=== PATIENT | male | born 1985 | race Caucasian/White ===

== ENCOUNTER 2024-04-17 15:30 | Inpatient (IN) | payer OTHER ==
[2024-04-17] MEDS: diazePAM 5 MG TABLET PO SCH (15:45)
[2024-04-17 17:18] VITALS: BMI 25.2
[2024-04-17] MEDS ORDERED: LOPERAMIDE HCL 2 MG CAPSULE PO PRN (17:35)
[2024-04-17] MEDS ORDERED: POLYETHYLENE GLYCOL (HEALTHYLAX) 3350 17 GM PACKET PO PRN (17:35)
[2024-04-17] MEDS ORDERED: BENZONATATE 200 MG CAPSULE PO PRN (17:35)
[2024-04-17] MEDS ORDERED: cloNIDine HCL 0.1 MG TABLET PO PRN (17:35)
[2024-04-17] MEDS ORDERED: MAG HYDROX/AL HYDROX/SIMETH 30 ML UNIT-DOSE CUP PO PRN (17:35)
[2024-04-17] MEDS ORDERED: DICYCLOMINE HCL 10 MG CAPSULE PO PRN (17:35)
[2024-04-17] MEDS ORDERED: IBUPROFEN 600 MG TABLET (FP) PO PRN (17:35)
[2024-04-17] MEDS ORDERED: IBUPROFEN 400 MG TABLET (FP) PO PRN (17:35)
[2024-04-17] MEDS ORDERED: BISMUTH SUBSALICYLATE 524 MG/30 ML PO PRN (17:35)
[2024-04-17] MEDS ORDERED: MAGNESIUM HYDROX 2400MG/30ML ORAL SUSPENSION 30 ML CUP PO PRN (17:35)
[2024-04-17] MEDS ORDERED: ACETAMINOPHEN 325 MG TABLET (FP) PO PRN (17:35)
[2024-04-17] MEDS ORDERED: BENZOCAINE/MENTHOL (CHLORASEPTIC ) LOZENGE MM PRN (17:35)
[2024-04-17] MEDS ORDERED: ONDANSETRON *ODT* 4 MG TABLET SL PRN (17:35)
[2024-04-17] MEDS ORDERED: guaiFENesin 600 MG TABLET.ER (FP) PO PRN (17:35)
[2024-04-17] MEDS ORDERED: NALOXONE (NARCAN) HCL 4 MG/0.1 ML SPRAY NS PRN (17:35)
[2024-04-17] MEDS ORDERED: diazePAM 5 MG TABLET ONE (17:52)
[2024-04-17] MEDS ORDERED: methaDONE HCL 10 MG TABLET (FOR DETOX USE ONLY) ONE (17:53)
[2024-04-17] MEDS: methaDONE HCL 10 MG TABLET (FOR DETOX USE ONLY) PO ONE (18:05)
[2024-04-17] MEDS: levETIRAcetam 500 MG TABLET (FP) PO ONE (18:06)
[2024-04-17] MEDS: THIAMINE 100 MG TABLET PO SCH (22:48)
[2024-04-17] MEDS: MELATONIN 5 MG TABLETS PO SCH (22:49)
[2024-04-18] MEDS: METHOCARBAMOL 500 MG TABLET PO PRN (10:15)
[2024-04-18] MEDS: NICOTINE 21 MG/24 HOURS TOPICAL PATCH TD SCH (10:16)
[2024-04-18] MEDS: PRENATAL VITAMINS W/ FOLIC ACID TABLET (FP) PO SCH (10:16)
[2024-04-18 12:08] LABS: HEMATOCRIT 38.8 % (35.4-49); HEMOGLOBIN 13.2 GM/dL (11.7-16.9); MCH 31.6 pg (25.7-33.7); MCHC 34.1 g/dl (32.0-35.9); MEAN CELL VOLUME 92.6 fl (80-96); MEAN PLT VOLUME 8.1 fl (7.5-11.1); PLATELET COUNT 344 10^3/uL (134-434); RBC 4.19 M/mm3 (4.00-5.60); RDW 12.8 % (11.9-15.9); WHITE BLOOD COUNT 11.2 K/mm3 (4.0-10.0)
[2024-04-18 12:20] LABS: CHLORIDE 104 mmol/L (98-107); POTASSIUM 3.7 mmol/L (3.5-5.1); SODIUM 139 mmol/L (136-145)
[2024-04-18 12:30] LABS: ALBUMIN 3.3 g/dl (3.4-5.0); ANION GAP 8 mmol/L (4-13); BLOOD UREA NITROGEN 10.6 mg/dL (7-18); CO2 27 mmol/L (21-32); GLUCOSE,RANDOM 102 mg/dL (74-106)
[2024-04-18 12:31] LABS: CALCIUM 8.8 mg/dL (8.5-10.1)
[2024-04-18 12:33] LABS: CREATININE 0.8 mg/dL (0.55-1.3); SGOT/AST 18 U/L (15-37); SGPT/ALT 32 U/L (13-61)
[2024-04-18 12:35] LABS: BILIRUBIN,TOTAL 0.4 mg/dL (0.2-1); TOT PROT 6.6 g/dl (6.4-8.2)
[2024-04-18 12:36] LABS: ALK PHOS 75 U/L (45-117)
[2024-04-18] MEDS: diazePAM 5 MG TABLET PO PRN (15:23)
[2024-04-18] MEDS: levETIRAcetam 500 MG TABLET (FP) PO ONE (17:51)
[2024-04-18] MEDS: NICOTINE POLACRILEX 4 MG GUM BUC PRN (19:28)
[2024-04-18] MEDS: levETIRAcetam 500 MG TABLET (FP) PO SCH (21:09)
[2024-04-19] MEDS: hydrOXYzine PAMOATE 25 MG CAPSULE (FP) PO PRN (02:01)
[2024-04-19] MEDS: diazePAM 5 MG TABLET PO SCH (05:32)
[2024-04-19 06:18] VITALS: RESP 16
[2024-04-19 08:38] VITALS: BP 110/77; PULSE 52; TEMP 97.5
[2024-04-19] MEDS: methaDONE HCL 10 MG TABLET (FOR DETOX USE ONLY) PO ONE (09:58)
[2024-04-19] MEDS: NALOXONE (NYS OPIOID OVERDOSE PROGRAM) 4 MG/0.1 ML SPRAY NS PRN (11:29)
[2024-04-20] MEDS ORDERED: diazePAM 5 MG TABLET PO SCH (06:00)
[2024-04-21] MEDS ORDERED: diazePAM 5 MG TABLET PO ONE (06:00)
[2024-04-21] MEDS ORDERED: methaDONE HCL 10 MG TABLET (FOR DETOX USE ONLY) PO ONE (10:00)
== END 2024-04-19 11:32 | disposition left against medical advice (07) | DRG 770 ==
LOC: YASAS 15:30 → Y3N 18:12
PROVIDERS: ADMIT Allergy & Immunology; ATTEND Surgery
PROC: HZ2ZZZZ Detoxification Services for Substance Abuse Treatment (ICD-10-PCS; principal; 2024-04-17)
DX: F11.23 Opioid dependence with withdrawal (principal); F10.230 Alcohol dependence with withdrawal, uncomplicated; F19.24 Other psychoactive substance dependence with psychoactive substance-induced mood disorder; G40.509 Epileptic seizures related to external causes, not intractable, without status epilepticus
CPT/HCPCS: 36415; 80053; 80305; 80307; 85027; 86780; 93005; 93010

== ENCOUNTER 2024-04-20 21:46 | Emergency (ER) | payer OTHER ==
[2024-04-20 21:59] VITALS: BP 134/85; PULSE 80; RESP 18; TEMP 98.4; BMI 24.3
[2024-04-20] MEDS ORDERED: methaDONE HCL 10 MG TABLET ONE (23:07)
[2024-04-20] MEDS: methaDONE HCL 10 MG TABLET PO ONE (23:14)
[2024-04-20] MEDS ORDERED: ONDANSETRON 4 MG/2 ML VIAL ONE (23:39)
[2024-04-20] MEDS ORDERED: LORazepam 1 MG TABLET ONE (23:39)
[2024-04-20] MEDS ORDERED: cloNIDine HCL 0.1 MG TABLET ONE (23:39)
[2024-04-20] MEDS: ONDANSETRON 4 MG/2 ML VIAL IVPUSH ONE (23:58)
[2024-04-21] MEDS: cloNIDine HCL 0.1 MG TABLET PO ONE (00:02)
[2024-04-21] MEDS: LORazepam 1 MG TABLET PO ONE (00:02)
[2024-04-21 00:08] LABS: BASO % 0.9 % (0-2.0); EOS % 0.1 % (0-4.5); HEMATOCRIT 38.1 % (35.4-49); HEMOGLOBIN 12.9 GM/dL (11.7-16.9); MCH 30.8 pg (25.7-33.7); MCHC 33.7 g/dl (32.0-35.9); MEAN CELL VOLUME 91.4 fl (80-96); MEAN PLT VOLUME 7.1 fl (7.5-11.1); MONO % 4.7 % (3.8-10.2); NEUT % 74.3 % (42.8-82.8); PLATELET COUNT 372 10^3/uL (134-434); RBC 4.17 M/mm3 (4.00-5.60); RDW 13.6 % (11.9-15.9); WHITE BLOOD COUNT 10.8 K/mm3 (4.0-10.0)
[2024-04-21 00:26] LABS: POTASSIUM 5.4 mmol/L (3.5-5.1)
[2024-04-21 00:28] LABS: CALCIUM 9.2 mg/dL (8.5-10.1)
[2024-04-21 00:29] LABS: ALBUMIN 3.9 g/dl (3.4-5.0); BLOOD UREA NITROGEN 8.2 mg/dL (7-18)
[2024-04-21 00:32] LABS: CREATININE 0.9 mg/dL (0.55-1.3)
[2024-04-21 00:33] LABS: BILIRUBIN,TOTAL 0.7 mg/dL (0.2-1)
[2024-04-21 00:34] LABS: TOT PROT 7.7 g/dl (6.4-8.2)
[2024-04-21] MEDS ORDERED: ONDANSETRON 4 MG/2 ML VIAL ONE (01:45)
[2024-04-21] MEDS: ONDANSETRON 4 MG/2 ML VIAL IVPUSH ONE (01:54)
== END 2024-04-21 01:55 | disposition home or self-care (01) ==
LOC: JER 21:46
PROC: 3E033GC Introduction of Other Therapeutic Substance into Peripheral Vein, Percutaneous Approach (ICD-10-PCS; principal; 2024-04-20)
PROC: 3E033GC Introduction of Other Therapeutic Substance into Peripheral Vein, Percutaneous Approach (ICD-10-PCS; 2024-04-20)
DX: R11.2 Nausea with vomiting, unspecified (principal); F41.9 Anxiety disorder, unspecified; F11.93 Opioid use, unspecified with withdrawal; R19.7 Diarrhea, unspecified; J34.89 Other specified disorders of nose and nasal sinuses
CPT/HCPCS: 36415; 80053; 83690; 85025; 93005; 93010; 99284-25